=== PATIENT | female | born 1985 | race American Indian/Alaskan Native ===

== ENCOUNTER 2017-09-30 08:17 | Emergency (ER) | payer MEDICARE ==
[2017-09-30 08:25] VITALS: BP 189/136
--- NOTE | 2017-09-30 11:27 | Emergency Department Report ---
ED ENT HPI - General Chief complaint: Earache Stated complaint: LEFT EAR PAIN Time Seen by Provider: 09/30/17 11:17 Source: patient Mode of arrival: Ambulatory Limitations: No Limitations - History of Present Illness Initial comments: Patient 32-year-old female who presents with left ear pain 1 week symptoms include pain nocturnal fever T max 101.4 patient denies difficulty hearing MD complaint: ear pain Onset/Timin -: week(s) Location: L ear Severity: moderate Severity scale (0 -10): 4 Quality: aching Consistency: intermittent Improves with: none Worsens with: position, movement Associated Symptoms: fever, tinnitus. denies: cough, gum swelling, toothache, pain with swallowing, sore throat, hearing loss, discharge from ear, rhinorrhea - Related Data Previous Rx's Medication Instructions Recorded Last Taken Type Amoxicillin 500 mg PO TID #30 capsule 09/30/17 Unknown Rx Ibuprofen 800 mg PO TID PRN #30 tablet 09/30/17 Unknown Rx Allergies Allergy/AdvReac Type Severity Reaction Status Date / Time No Known Allergies Allergy Unverified 09/30/17 08:23 ED Dental HPI - General Chief complaint: Earache Stated complaint: LEFT EAR PAIN Time Seen by Provider: 09/30/17 11:17 Source: patient Mode of arrival: Ambulatory Limitations: No Limitations - Related Data Previous Rx's Medication Instructions Recorded Last Taken Type Amoxicillin 500 mg PO TID #30 capsule 09/30/17 Unknown Rx Ibuprofen 800 mg PO TID PRN #30 tablet 09/30/17 Unknown Rx Allergies Allergy/AdvReac Type Severity Reaction Status Date / Time No Known Allergies Allergy Unverified 09/30/17 08:23 ED Review of Systems ROS: Stated complaint: LEFT EAR PAIN Other details as noted in HPI Constitutional: fever Eyes: denies: eye pain, eye discharge, vision change ENT: ear pain. denies: throat pain, dental pain, hearing loss, epistaxis, congestion Respiratory: denies: cough, shortness of breath, wheezing Cardiovascular: denies: chest pain, palpitations Endocrine: no symptoms reported Gastrointestinal: denies: abdominal pain, nausea, diarrhea Genitourinary: denies: urgency, dysuria, discharge Musculoskeletal: denies: back pain, joint swelling, arthralgia Skin: denies: rash, lesions Neurological: denies: headache, weakness, paresthesias Psychiatric: denies: anxiety, depression Hematological/Lymphatic: denies: easy bleeding, easy bruising ED Past Medical Hx - Past Medical History Hx Hypertension: Yes - Surgical History Past Surgical History?: No - Social History Smoking Status: Never Smoker Substance Use Type: None - Medications Home Medications: Home Medications Medication Instructions Recorded Confirmed Last Taken Type Amoxicillin 500 mg PO TID #30 capsule 09/30/17 Unknown Rx Ibuprofen 800 mg PO TID PRN #30 tablet 09/30/17 Unknown Rx ED Physical Exam - General Limitations: No Limitations General appearance: alert, in no apparent distress - Head Head exam: Present: atraumatic, normocephalic - Eye Eye exam: Present: normal appearance, PERRL, EOMI Pupils: Present: normal accommodation - ENT ENT exam: Present: normal orophraynx, mucous membranes moist - Expanded ENT Exam Expanded TM/Canal exam: Erythema: Left TM, Effusion: Left TM, Canal Tenderness: Left TM Mouth exam: Absent: trismus Throat exam: Positive: normal inspection. Negative: tonsillar erythema, tonsillomegaly, tonsillar exudate, R peritonsillar mass, L peritonsillar mass - Neck Neck exam: Present: normal inspection, full ROM. Absent: lymphadenopathy, thyromegaly - Respiratory Respiratory exam: Present: normal lung sounds bilaterally. Absent: respiratory distress - Cardiovascular Cardiovascular Exam: Present: regular rate, normal rhythm. Absent: systolic murmur, diastolic murmur, rubs, gallop - GI/Abdominal GI/Abdominal exam: Present: soft, normal bowel sounds. Absent: distended, tenderness, guarding, rebound, rigid, organomegaly, mass, bruit, pulsatile mass , hernia - Rectal Rectal exam: Present: deferred - Extremities Exam Extremities exam: Present: normal inspection - Back Exam Back exam: Present: normal inspection, full ROM. Absent: tenderness, CVA tenderness (R), CVA tenderness (L), muscle spasm, paraspinal tenderness, vertebral tenderness - Neurological Exam Neurological exam: Present: alert, oriented X3, CN II-XII intact, normal gait, reflexes normal - Psychiatric Psychiatric exam: Present: normal affect, normal mood - Skin Skin exam: Present: warm, dry, intact, normal color. Absent: rash ED Course Vital Signs 09/30/17 08:23 Temperature 98 F Pulse Rate 88 Respiratory 20 Rate Blood Pressure 189/136 O2 Sat by Pulse 98 Oximetry ED Medical Decision Making - Medical Decision Making Patient isn't presents for left earache times one week pain erythema mild tinnitus nocturnal fever plan treat with amoxicillin and ibuprofen when necessary pain and follow-up with ENT in 2-3 days patient verbalized understanding of same Critical care attestation.: If time is entered above; I have spent that time in minutes in the direct care of this critically ill patient, excluding procedure time. ED Disposition Clinical Impression: AOM (acute otitis media) Qualifiers: Otitis media type: suppurative Laterality: left Recurrence: not specified as recurrent Spontaneous tympanic membrane rupture: without spontaneous rupture Qualified Code(s): H66.002 - Acute suppurative otitis media without spontaneous rupture of ear drum, left ear Disposition: - TO HOME OR SELFCARE Is pt being admited?: No Does the pt Need Aspirin: No Condition: Good Instructions: Otitis Media (ED) Prescriptions: Amoxicillin 500 mg PO TID #30 capsule Ibuprofen 800 mg PO TID PRN #30 tablet PRN Reason: pain fever Referrals: PRIMARY CARE, [Primary Care Provider] - 3-5 Days Forms: Work/School Release Form(ED) Time of Disposition: 11:43
== END 2017-09-30 11:47 | disposition home or self-care (01) ==
LOC: ED 08:17
DX: H66.002 Acute suppurative otitis media without spontaneous rupture of ear drum, left ear (principal); I10 Essential (primary) hypertension
CPT/HCPCS: 99282

== ENCOUNTER 2020-12-20 09:25 | Emergency (ER) | payer MEDICARE ==
[2020-12-20 11:08] LABS: Basophils % (Auto) 0.4 % (0.0-1.8); Eosinophils % (Auto) 0.5 % (0.0-4.3); Hematocrit 33.2 % (30.3-42.9); Hemoglobin 10.4 gm/dl (10.1-14.3); Lymphocytes # (Auto) 1.1 K/mm3 (1.2-5.4); Mean Corpuscular HGB Conc 31 % (30-34); Monocytes # (Auto) 0.6 K/mm3 (0.0-0.8); Monocytes % (Auto) 8.6 % (0.0-7.3); Platelet Count 399 K/mm3 (140-440); Red Cell Distribution Width 17.4 % (13.2-15.2)
[2020-12-20 11:09] LABS: Mean Corpuscular Volume 68 fl (79-97)
[2020-12-20] MEDS ORDERED: ACETAMINOPHEN 500 MG TAB PO ONE (11:10)
--- NOTE | 2020-12-20 11:13 | Event Note ---
ED Screening Note Date of service: 12/20/20 Time: 11:11 ED Screening Note: 35-year-old obese -Wel[place] female presents with 1 day history of periumbilicus abdominal pain. Patient admits to vomiting x2 today. Nothing alleviates symptoms aggravate this sitting and standing. Denies any dysuria, vaginal discharge, vaginal bleeding or hematuria. Patient is 4 para to 4 last menstrual period was sometime in November. Patient denies smoking cigarettes or marijuana. Patient states she has never had this type of pain. This initial assessment/diagnostic orders/clinical plan/treatment(s) is/are subject to change based on patients health status, clinical progression and re-assessment by fellow clinical providers in the ED. Further treatment and workup at subsequent clinical providers discretion. Patient/guardian urged not to elope from the ED as their condition may be serious if not clinically assessed and managed. Initial orders include: CBC CMP lipase urinalysis urine test.
[2020-12-20 11:34] LABS: Albumin 4.2 g/dL (3.9-5); Calcium 8.7 mg/dL (8.4-10.2)
[2020-12-20] MEDS ORDERED: SODIUM CHLORIDE 0.9% 1000 ML 2,000 ML IV ONE (11:49)
[2020-12-20] MEDS ORDERED: POTASSIUM CHLORIDE ER 20 MEQ TAB PO ONE (11:50)
[2020-12-20 12:02] LABS: Bilirubin,Urine NEG (Negative); Blood,Urine NEG (Negative); Color,Urine Straw (Yellow); Urobilinogen,Urine < 2.0 mg/dL (<2.0)
[2020-12-20 12:18] LABS: HCG Qualitative,Urine Negative (Negative)
[2020-12-20] MEDS: POTASSIUM CHLORIDE 10 MEQ 10 MEQ/100 ML BAG IV SCH ×2 (13:40→15:08)
[2020-12-20] MEDS ORDERED: PANTOPRAZOLE 40 MG INJ IV ONE ×2 (15:05→16:38)
[2020-12-20] MEDS ORDERED: KETOROLAC 30 MG/1 ML INJ IV ONE (15:05)
[2020-12-20] MEDS ORDERED: MORPHINE 2 MG/1 ML INJ IV ONE (15:08)
--- NOTE | 2020-12-20 15:10 | Emergency Department Report ---
ED Abdominal Pain HPI - General Chief Complaint: Abdominal Pain Stated Complaint: VOMITING/ABDOMINAL PAIN PUI?: No Time Seen by Provider: 12/20/20 14:16 Source: patient, family Mode of arrival: Ambulatory Limitations: Physical Limitation - History of Present Illness Initial Comments: This is a 35-year-old female who presents to the ED complaining of sudden onset of generalized/periumbilical abdominal pain x 2 days. Patient states that she started experiencing some vomiting and diarrhea yesterday. Patient states she has about 2 episodes of vomiting and 3 episodes of diarrhea between yesterday and today. Patient states stools are watery, nonbloody. She denies fever/chills/chest pain or shortness of breath. MD Complaint: abdominal pain -: days(s) (1) Location: diffuse, periumbilical Radiation: none Migration to: no migration Severity: moderate Severity scale (0 -10): 10 Quality: cramping, stabbing Improves With: nothing Worsens With: nothing Associated Symptoms: nausea, vomiting, diarrhea - Related Data Previous Rx's Medication Instructions Recorded Last Taken Type Amoxicillin 500 mg PO TID #30 capsule 09/30/17 Unknown Rx Ibuprofen [Ibuprofen 800] 800 mg PO TID PRN #30 tablet 09/30/17 Unknown Rx Famotidine [Pepcid] 20 mg PO BID #20 tablet 12/20/20 Unknown Rx Ondansetron [Zofran ODT TAB] 8 mg PO Q12HR #20 tab.rapdis 12/20/20 Unknown Rx Potassium Chloride 10 meq PO DAILY #5 tablet.er 12/20/20 Unknown Rx traMADoL [Ultram 50 MG tab] 50 mg PO Q6HR PRN #15 tablet 12/20/20 Unknown Rx Allergies Allergy/AdvReac Type Severity Reaction Status Date / Time No Known Allergies Allergy Verified 12/20/20 12:02 ED Review of Systems ROS: Stated complaint: VOMITING/ABDOMINAL PAIN Other details as noted in HPI Comment: All other systems reviewed and negative ED Past Medical Hx - Past Medical History Previous Medical History?: Yes Hx Hypertension: Yes Hx CVA: Yes Additional medical history: brain aneurysm - Surgical History Past Surgical History?: Yes Additional Surgical History: - Social History Smoking Status: Never Smoker Substance Use Type: None - Medications Home Medications: Home Medications Medication Instructions Recorded Confirmed Last Taken Type Amoxicillin 500 mg PO TID #30 capsule 09/30/17 Unknown Rx Ibuprofen [Ibuprofen 800] 800 mg PO TID PRN #30 tablet 09/30/17 Unknown Rx Famotidine [Pepcid] 20 mg PO BID #20 tablet 12/20/20 Unknown Rx Ondansetron [Zofran ODT TAB] 8 mg PO Q12HR #20 tab.rapdis 12/20/20 Unknown Rx Potassium Chloride 10 meq PO DAILY #5 tablet.er 12/20/20 Unknown Rx traMADoL [Ultram 50 MG tab] 50 mg PO Q6HR PRN #15 tablet 12/20/20 Unknown Rx ED Physical Exam - General Limitations: Physical Limitation General appearance: alert, in no apparent distress - Head Head exam: Present: atraumatic, normocephalic - Eye Eye exam: Present: normal appearance - ENT ENT exam: Present: mucous membranes moist - Neck Neck exam: Present: normal inspection - Respiratory Respiratory exam: Present: normal lung sounds bilaterally. Absent: respiratory distress - Cardiovascular Cardiovascular Exam: Present: regular rate, normal rhythm. Absent: systolic murmur, diastolic murmur, rubs, gallop - GI/Abdominal GI/Abdominal exam: Present: soft, tenderness (To palpation of the abdomen), normal bowel sounds. Absent: organomegaly, pulsatile mass, hernia - Expanded GI/Abdominal Exam Expanded GI/Abdominal exam: Absent: Lemon's sign, Rovsing's sign, tenderness at Mcburney's Point - Extremities Exam Extremities exam: Present: normal inspection - Back Exam Back exam: Present: normal inspection - Neurological Exam Neurological exam: Present: alert, oriented X3 - Psychiatric Psychiatric exam: Present: normal affect, normal mood - Skin Skin exam: Present: warm, dry, intact, normal color. Absent: rash ED Course Vital Signs 12/20/20 12/20/20 12/20/20 09:29 13:45 19:15 Temperature 98.1 F Pulse Rate 76 82 77 Respiratory 18 18 17 Rate Blood Pressure 185/104 200/106 167/100 [Right] O2 Sat by Pulse 97 97 96 Oximetry - Reevaluation(s) Reevaluation #1: 12/20/20 17:24 Upon reassessment patient was asleep in the ED bed. Patient states that she feels much better pain is a bit relieved. CT abdomen pelvis still pending. ED Medical Decision Making - Lab Data Result diagrams: 12/20/20 10:39 12/20/20 10:39 - Radiology Data Radiology results: report reviewed, image reviewed CT ABDOMEN AND PELVIS WITHOUT CONTRAST INDICATION / CLINICAL INFORMATION: abd pain. TECHNIQUE: Axial CT images were obtained through the abdomen and pelvis without IV contrast. All CT scans at this location are performed using CT dose reduction for ALARA by means of automated exposure control. COMPARISON: None available. FINDINGS: LOWER CHEST: Upper limits normal heart size versus mild cardiomegaly. HEPATOBILIARY: Increased attenuation throughout the gallbladder suggests biliary sludge. No significant biliary ductal dilatation. No focal hepatic abnormality. PANCREAS/SPLEEN/ADRENALS: No significant abnormality. GENITOURINARY: 2, 3 mm left-sided nonobstructing nephrolith at the inferior pole. No convincing evidence of obstructive uropathy. Ureters and bladder demonstrate no significant abnormality. Note is made of multiple punctate pelvic phleboliths. GASTROINTESTINAL/MESENTERY: Appendix demonstrates no significant abnormality. N o bowel obstruction or inflammation is apparent. No free air or significant free fluid. RETROPERITONEUM: No significant adenopathy. REPRODUCTIVE ORGANS: Intrauterine device appears to demonstrate slight proximal migration. VASCULAR: No significant abnormality. BODY WALL: No significant abnormality. SKELETAL SYSTEM: No significant abnormality. IMPRESSION: 1. No acute abdominopelvic abnormality. 2. Findings suggestive of biliary sludge without significant pericholecystic fluid or inflammatory change. 3. Left-sided nonobstructing nephrolithiasis. 4. Possible mild cardiomegaly. 5. Intrauterine device appears to demonstrate slight proximal migration. Signer Name: Julio Terrazas MD Signed: 12/20/2020 6:14 PM Workstation Name: [id number] Transcribed By: Dictated By: JULIO TERRAZAS III Electronically Authenticated By: JULIO TERRAZAS III Signed Date/Time: 12/20/20 1814 - Medical Decision Making This 35-year-old female presents with acute nausea and vomiting. Labs show hypokalemia. Patient received potassium supplement to replenish potassium. Upon reassessment patient was feeling much better. Patient nausea vomiting resolved. Patient was placed on discharge medications for potassium to supplement. Vital signs are normal and she was in no acute distress. Patient is resting in ED bed. Patient is stable and currently stable for discharge. I discussed with patient follow-up with the primary care physician. Critical care attestation.: If time is entered above; I have spent that time in minutes in the direct care of this critically ill patient, excluding procedure time. ED Disposition Clinical Impression: Abdominal pain, Nephrolithiasis, Hypokalemia Disposition: TO HOME OR SELFCARE Is pt being admited?: No Does the pt Need Aspirin: No Condition: Stable Instructions: Renal Colic, [id number], Hypokalemia, Flank Pain, Adult, [id number], Potassium Content of Foods, Abdominal Pain (ED) Additional Instructions: Make sure to follow up with the primary care physician as discussed. Take all your medications as you've been prescribed. If you have any worsening symptoms or develop new symptoms please return to ED immediately. Prescriptions: Famotidine [Pepcid] 20 mg PO BID #20 tablet Potassium Chloride 10 meq PO DAILY #5 tablet.er traMADoL [Ultram 50 MG tab] 50 mg PO Q6HR PRN #15 tablet PRN Reason: Pain Ondansetron [Zofran ODT TAB] 8 mg PO Q12HR #20 tab.mahnazdis Referrals: DAVIAN HA MD [Primary Care Provider] - 3-5 Days [facility] [Provider Group] - 3-5 Days Forms: Work/School Release Form(ED) Time of Disposition: 18:40
--- NOTE | 2020-12-20 18:19 | Cat Scan Report ---
CT ABDOMEN AND PELVIS WITHOUT CONTRAST INDICATION / CLINICAL INFORMATION: abd pain. TECHNIQUE: Axial CT images were obtained through the abdomen and pelvis without IV contrast. All CT scans at [facility] location are performed using CT dose reduction for ALARA by means of automated exposure control. COMPARISON: None available. FINDINGS: LOWER CHEST: Upper limits normal heart size versus mild cardiomegaly. HEPATOBILIARY: Increased attenuation throughout the gallbladder suggests biliary sludge. No significa nt biliary ductal dilatation. No focal hepatic abnormality. PANCREAS/SPLEEN/ADRENALS: No significant abnormality. GENITOURINARY: 2, 3 mm left-sided nonobstructing nephrolith at the inferior pole. No convincing evide nce of obstructive uropathy. Ureters and bladder demonstrate no significant abnormality. Note is made of multiple punctate pelvic phleboliths. GASTROINTESTINAL/MESENTERY: Appendix demonstrates no significant abnormality. No bowel obstruction or inflammation is apparent. No free air or significant free fluid. RETROPERITONEUM: No significant adenopathy. REPRODUCTIVE ORGANS: Intrauterine device appears to demonstrate slight proximal migration. VASCULAR: No significant abnormality. BODY WALL: No significant abnormality. SKELETAL SYSTEM: No significant abnormality. IMPRESSION: 1. No acute abdominopelvic abnormality. 2. Findings suggestive of biliary sludge without significant pericholecystic fluid or inflammatory ch barbara. 3. Left-sided nonobstructing nephrolithiasis. 4. Possible mild cardiomegaly. 5. Intrauterine device appears to demonstrate slight proximal migration. Signer Name: Julio Terrazas MD Signed: 12/20/2020 6:14 PM Workstation Name: [id number]
[2020-12-20 23:02] VITALS: BP 167/100
== END 2020-12-20 19:15 | disposition home or self-care (01) ==
LOC: ED 09:25
DX: N20.0 Calculus of kidney (principal); E87.6 Hypokalemia; R10.33 Periumbilical pain; I10 Essential (primary) hypertension; Z86.73 Personal history of transient ischemic attack (TIA), and cerebral infarction without residual deficits; Z98.890 Other specified postprocedural states; Z79.1 Long term (current) use of non-steroidal anti-inflammatories (NSAID); Z79.2 Long term (current) use of antibiotics; Z79.899 Other long term (current) drug therapy
CPT/HCPCS: 36415; 74176; 80053; 81001; 81025; 83690; 83735; 85025; 96365; 96366; 96375; 99284; C9113; J1885; J2270; J3480; J7030